=== PATIENT | female | born 1980 | race African-American/Black ===

== ENCOUNTER 2019-06-10 01:32 | Emergency (ER) | payer SELFPAY ==
[~2019-06-10] VITALS: Ht 167.6 cm; Wt 179.0 kg
[2019-06-10 01:43] VITALS: BP 126/72
== END 2019-06-10 04:51 | disposition left against medical advice (07) ==
LOC: ER 02:00
DX: Z53.21 Procedure and treatment not carried out due to patient leaving prior to being seen by health care provider (principal)

== ENCOUNTER 2020-07-17 20:08 | Emergency (ER) | payer SELFPAY ==
[~2020-07-17] VITALS: Ht 167.6 cm; Wt 190.0 kg
[2020-07-17] MEDS ORDERED: ONDANSETRON 4MG ODT PO ONE (20:45)
[2020-07-17] MEDS ORDERED: LORAZEPAM 1MG TABLET PO ONE (20:45)
[2020-07-17 23:05] VITALS: BP 92/40
== END 2020-07-17 23:50 | disposition home or self-care (01) ==
LOC: ER 20:08
DX: T40.7X1A Poisoning by cannabis (derivatives), accidental (unintentional), initial encounter (principal); Y92.9 Unspecified place or not applicable
CPT/HCPCS: 99283; Q0162

== ENCOUNTER 2022-04-29 20:55 | Emergency (ER) | payer SELFPAY ==
[~2022-04-29] VITALS: Ht 165.1 cm; Wt 180.0 kg
[2022-04-29 21:01] VITALS: BP 141/96
[2022-04-29] MEDS ORDERED: ACETAMINOPHEN 325MG TABLET PO ONE (22:30)
[2022-04-29] MEDS ORDERED: CYCLOBENZAPRINE 10MG TABLET PO ONE (23:15)
[2022-04-29] MEDS ORDERED: CYCL5TAB MT (23:28)
[2022-04-29] MEDS ORDERED: ACET-2708 MT (23:28)
== END 2022-04-30 00:02 | disposition home or self-care (01) ==
LOC: ER 20:55
DX: S80.211A Abrasion, right knee, initial encounter (principal); R51.9 Headache, unspecified; M79.652 Pain in left thigh; S60.511A Abrasion of right hand, initial encounter; V49.49XA Driver injured in collision with other motor vehicles in traffic accident, initial encounter; Y93.89 Activity, other specified; Y92.488 Other paved roadways as the place of occurrence of the external cause; Z86.711 Personal history of pulmonary embolism; Z79.01 Long term (current) use of anticoagulants
CPT/HCPCS: 81025; 99284